=== PATIENT | male | born 1980 | race Caucasian/White ===

== ENCOUNTER → 2021-01-30 09:21 | Outpatient (CLI) | payer OTHER, SELFPAY ==
[2021-01-30 20:13] LABS: SARS-CoV-2 RNA PCR Negative
== END ==
PROVIDERS: PCP Internal Medicine; Visit Provider Internal Medicine
DX: R05 Cough (principal); Z20.822 Contact with and (suspected) exposure to COVID-19
CPT/HCPCS: C9803; U0003; U0005

== ENCOUNTER → 2021-07-20 09:31 | Outpatient (CLI) | payer OTHER, SELFPAY ==
--- NOTE | ~2021-07-20 | XR_ITS ---
EXAMINATION: XR hand RT min 3V INDICATION: Right hand pain TECHNIQUE: Three views of the right hand are obtained. COMPARISON: None available FINDINGS: There is no fracture, dislocation, or subluxation. The bones, soft tissues, and joint space s are normal. No productive changes of bony healing are identified. IMPRESSION: 1. No acute osseous abnormality. Reviewed, dictated and finalized at location A.
== END ==
PROVIDERS: PCP Internal Medicine; Visit Provider Internal Medicine
DX: S69.91XA Unspecified injury of right wrist, hand and finger(s), initial encounter (principal); X58.XXXA Exposure to other specified factors, initial encounter
CPT/HCPCS: 73130

== ENCOUNTER 2023-11-11 18:24 | Emergency (ER) | payer OTHER, SELFPAY ==
--- NOTE | ~2023-11-11 | XR_ITS ---
EXAMINATION: XR chest 2V DATE: 11/11/2023 18:44 INDICATION: Chest pain TECHNIQUE: frontal and lateral views of the chest were obtained. COMPARISON: None FINDINGS: The lungs are clear with no focal airspace opacities, pulmonary edema, pleural effusion or pneumothor ax. Partially symmetric nipple shadows projecting near the bilateral anterior fifth ribs. The cardiom ediastinal silhouette is normal. Mild thoracic spondylosis. Heterotopic ossification in the region of the left coracoclavicular ligament suggestive of sequela of chronic tear. IMPRESSION: 1. No acute cardiopulmonary disease. Reviewed, dictated and finalized at location A. GAGE OPERATIONS MANAGER
--- NOTE | 2023-11-11 18:28 | ECG_ITS ---
Measurements Intervals [place] Rate: 92 P: 73 NH: 139 QRS: 88 QRSD: 77 T: 65 QT: 293 QTc: 363 Interpretive Statements SINUS RHYTHM POSSIBLE RIGHT ATRIAL ENLARGEMENT POSSIBLE LEFT ATRIAL ENLARGEMENT BORDERLINE ST-T WAVE ABNORMALITY- ANTEROLAT/INF LEADS BASELINE ARTIFACT- I, II, III, AVR, AVL, V6 BORDERLINE ECG NO PREVIOUS ECG AVAILABLE FOR COMPARISON Electronically Signed On 11-11-2023 19:23:38 CLINICAL NURSING DIRECTOR by Nima Grijalva D.O.
[2023-11-11 18:29] VITALS: BP 190/84; PULSE 97; RESP 19; TEMP 36.4; O2SAT 100
--- NOTE | 2023-11-11 18:36 | ED.GENADULT ---
HPI - General Adult General Chief complaint: Chest Pain <Cynthia Rice March, - Last Filed: 11/13/23 21:17> Stated complaint: chest pain x4-5 days <Cynthia Rice March, - Last Filed: 11/13/23 21:17> Time Seen by Provider: 11/11/23 22:35 <Cynthia Rice March, - Last Filed: 11/13/23 21:17> History of Present Illness HPI narrative: Molina Tony is a 43 y/o male with PMhx of Type 1 DM reports he had a sore throat 3-4 days ago that improved with a mild cough that seems to be getting better. He presents today with complaints of intermittent left upper chest burning/ warm/ constricting pain for the past 4-5 days. He hasn't noticed anything that makes his pain better/worse or what brings it on. Denies SOB/ Fever/chills No hx of HTN - elevated here. No hx of MS/cardiac surgery <Cynthia Rice March, - Last Filed: 11/13/23 21:17> Related Data Home medications: Home Medications Medication Instructions Recorded Confirmed blood-glucose meter,continuous #1 ea 04/05/20 07/30/23 ([employer] Consultant) cholecalciferol (vitamin D3) 125 125 mcg PO DAILY 07/30/23 07/30/23 mcg (5,000 unit) tablet rosuvastatin 5 mg tablet 5 mg PO DAILY 07/30/23 07/30/23 <Cynthia Rice March, - Last Filed: 11/13/23 21:17> Allergies/adverse reactions: Allergies Allergy/AdvReac Type Severity Reaction Status Date / Time Penicillins Allergy Unknown Rash Verified 07/30/23 08:21 shellfish derived Allergy Unknown Dizziness Verified 07/30/23 08:21 <Cynthia Rice March, - Last Filed: 11/13/23 21:17> Review of Systems Review of Systems: All systems reviewed & are unremarkable except as noted in HPI and below <Cynthia Rice March,N Last Filed: 11/13/23 21:17> PMFSH Past Medical History Medical History: Medical History 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 Type 1 diabetes mellitus with hyperglycemia, with long-term current use of insulin <Cynthia Rice March, Last Filed: 11/13/23 21:17> Surgical History Surgical History: Surgical History No pertinent past surgical history <Cynthia Rice March, Last Filed: 11/13/23 21:17> Family History Family History: Family History Father Family history of diabetes mellitus in first degree relative <Cynthia Rice March, Last Filed: 11/13/23 21:17> Social History Social History: Social History Smoking status: Never smoker Second hand tobacco smoke exposure: No Alcohol intake: current Alcohol use details: occasionally Substance use: never Lack of Transportation: No Lack of Food: Never True Current Housing: I Have Housing Concerned About Future Housing: No Difficulty Paying Gas/Electric Bills: No Difficulty Paying for Meds: No Currently Unemployed: No Difficulty w/ Childcare or Family Care: No <Cynthia Rice March, Last Filed: 11/13/23 21:17> Exam Const: General: healthy appearing and no acute distress <Cynthia Rice March, Last Filed: 11/13/23 21:17> Nutritional Appearance: well nourished <Cynthia Rice March, Last Filed: 11/13/23 21:17> Orientation/consciousness: patient oriented x3 <Cynthia Rice March, Last Filed: 11/13/23 21:17> HENMT: Head: normal to inspection <Cynthia Rice March, Last Filed: 11/13/23 21:17> Eyes: Conjunctivae: conjunctivae normal <Cynthia Rice March, Last Filed: 11/13/23 21:17> Pupils: Equal, round and reactive pupils present <Cynthia Rice March, Last Filed: 11/13/23 21:17> EOM: EOMs intact bilaterally <Cynthia Trejo FIRESTOP/CONTAINMENT WORKER - Last Filed: 11/13/23 21:17> Chest: Chest palpation & inspection: normal inspection of the chest <Cynthia Trejo - Last Filed: 11/13/23 21:17> Resp: Effort & Inspection: normal respiratory effort <K
[2023-11-11 18:41] LABS: Basophils Absolute Auto 0.1 K/mm3 (0.0-0.1); Basophils Percent Auto 0.6 % (0.2-1.2); Eosinophils Absolute Auto 0.1 K/mm3 (0-0.3); Eosinophils Percent Auto 1.3 % (0-4.4); Hematocrit 47.6 % (42.0-52.0); Immature Granulocyte Absolute 0.03 K/mm3 (0.00-0.031); Immature Granulocyte Percent A 0.3 % (0-0.5); Lymphocytes Percent Auto 23.5 % (18.3-44.2); Mean Corpuscular HGB Conc 31.5 g/dl (32-36); Mean Corpuscular Hemoglobin 27.6 pg (26-34); Mean Corpuscular Volume 87.5 fl (80-100); Mean Platelet Volume 10.4 fl (7.4-10.4); Monocytes Absolute Auto 0.9 K/mm3 (0.1-0.6); Monocytes Percent Auto 8.8 % (2.6-8.5); Neutrophils Absolute Auto 6.4 K/mm3 (1.3-6.7); Neutrophils Percent Auto 65.5 % (45.5-73.1); Platelet Count Result 229 k/mm3 (150-375); Red Blood Count 5.44 M/mm3 (4.6-6.20); Red Cell Distribution Width 12.4 % (11.5-14.5); White Blood Count 9.8 K/mm3 (4.5-10.0)
[2023-11-11 18:51] LABS: Alanine Aminotransferase 41 U/L (6-50); Albumin Level 4.4 g/dL (3.5-5.1); Alkaline Phosphatase 88 U/L (38-126); Anion Gap 9 mmol/L (8-16); Aspartate Amino Transferase 34 U/L (17-59); Bilirubin,Total 0.7 mg/dL (0.2-1.3); Blood Urea Nitrogen 15 mg/dL (9-20); Calcium 9.7 mg/dL (8.4-10.2); Carbon Dioxide 31 mmol/L (22-30); Chloride 100 mmol/L (98-107); Estimated CRCL calculation 91 ml/min; Estimated Glomerular Filt Rate > 60; Glucose 143 mg/dL (65-110); Lipase 40 U/L (23-300); Potassium 3.4 mmol/L (3.4-5.0); Prothrombin Time 13.6 Seconds (11.1-14.7); Sodium 140 mmol/L (137-145)
[2023-11-11 18:52] LABS: Partial Thromboplastin Time 27.7 SECONDS (22.3-36.8)
[2023-11-11 19:02] LABS: Troponin I < 0.012 ng/mL (0.000-0.034)
--- NOTE | 2023-11-11 22:41 | ECG_ITS ---
Measurements Intervals [place] Rate: 82 P: 58 MS: 136 QRS: 81 QRSD: 80 T: 45 QT: 375 QTc: 439 Interpretive Statements SINUS RHYTHM POSSIBLE LEFT ATRIAL ENLARGEMENT BORDERLINE ST-T WAVE ABNORMALITY- ant/inf leads BORDERLINE ECG COMPARED TO ECG 11/11/2023 18:33:24 NO SIGNIFICANT CHANGES Electronically Signed On 11-12-2023 11:39:51 WORKPLACE REHABILITATION OFFICER by Nima Grijalva D.O.
[2023-11-11 22:43] VITALS: BP 162/85; PULSE 91; RESP 16; O2SAT 100
[2023-11-11 23:05] LABS: Troponin I < 0.012 ng/mL (0.000-0.034)
[2023-11-11 23:10] LABS: Influenza A QL RT-PCR Negative (Negative); Influenza B QL RT-PCR Negative (Negative); RSV RNA, RT-PCR Negative (Negative); SARS-CoV-2 RNA PCR Negative (Negative)
[2023-11-11 23:59] VITALS: BP 134/69; PULSE 68; RESP 15; O2SAT 99
== END 2023-11-12 00:12 | disposition home or self-care (01) ==
PROVIDERS: Emergency Medicine; Nurse Practitioner Family; Emergency Provider Emergency Medicine; PCP Family Medicine
DX: R07.89 Other chest pain (principal); Z20.822 Contact with and (suspected) exposure to COVID-19; E10.69 Type 1 diabetes mellitus with other specified complication; E78.5 Hyperlipidemia, unspecified; Z79.4 Long term (current) use of insulin; R94.31 Abnormal electrocardiogram [ECG] [EKG]
CPT/HCPCS: 36415; 71046; 80053; 83690; 84484; 85025; 85610; 85730; 87637; 93005; 99284

== ENCOUNTER 2024-06-29 08:29 | Outpatient (CLI) | payer OTHER, SELFPAY ==
--- NOTE | 2024-06-29 08:31 | ECHO_ITS ---
Patient Info Name: Molina Tony Age: 43 years : 1980 Gender: Male Ht: 68 in Wt: 175 lbs BSA: 1.97 m2 HR: 65 bpm BP: 160 / 92 mmHg Heart Rhythm: Sinus Rhythm Technical Quality: Good Exam Date: 06/29/2024 9:01 AM Exam Location: Echo Lab Patient Status: Outpatient Admit Date: 06/29/2024 Staff Ordering Physician: Travis Wiley DO Top Spotter: Quinn Philip RDCS Attending Provider: Travis Wiley DO Referring Physician: Inez HARRELL; Exam Type: CA echo doppler color flow Study Info Indications - cardiomegaly Complete two-dimensional, color flow and Doppler transthoracic echocardiogram is performed. Summary 1. Complete two-dimensional, color flow and Doppler transthoracic echocardiogram is performed. 2. Left ventricular chamber dimension is normal. 3. Left ventricular systolic function is normal, estimated at 60-65%. 4. The left ventricular diastolic function is normal. 5. E/e' 5 is not elevated. 6. There is trace mitral valve regurgitation. 7. No pulmonary hypertension, estimated pulmonary arterial systolic pressure is 13 mmHg. Left Ventricle E/e' 5 is not elevated. Left ventricular chamber dimension is normal. Left ventricular systolic function is normal, estimated at 60-65%. The left ventricular diastolic function is normal. Right Ventricle Right ventricular systolic function is normal and with normal TAPSE 2.6 cm. Right ventricular chamber dimension is normal. Left Atria Left atrial chamber dimension is normal. Right Atria Right atrial chamber dimension is normal. Aortic Valve The aortic valve is trileaflet. There is no aortic valve stenosis. There is no aortic valve regurgitation. Pulmonic Valve There is no pulmonic regurgitation. Mitral Valve There is no mitral valve stenosis. There is trace mitral valve regurgitation. Tricuspid Valve There is no tricuspid valve regurgitation. No pulmonary hypertension, estimated pulmonary arterial systolic pressure is 13 mmHg. Pericardium/Pleural There is no pericardial effusion. Inferior Vena Cava Normal inferior vena cava with >50% collapse upon inspiration consistent with normal right atrial pressure, 5 mmHg. Aorta The aortic root size at the sinus of Valsalva is normal. Left Ventricular Outflow Tract Name Value Normal LVOT 2D LVOT Diameter 1.8 cm LVOT Doppler LVOT Peak Gradient 6 mmHg LVOT Mean Gradient 3 mmHg LVOT VTI 24 cm LVOT VTI/AV VTI Ratio 0.9 LVOT Stroke Volume 61 ml LVOT CO 3.2 l/min LVOT CI 1.6 l/min/m2 Pulmonic Valve Name Value Normal PV Doppler PV Peak Gradient 5 mmHg Mitral Valve Name Value Normal ----
== END 2024-06-29 08:30 | disposition home or self-care (01) ==
PROVIDERS: PCP Family Medicine; Visit Provider Family Medicine
DX: I51.7 Cardiomegaly (principal)
CPT/HCPCS: 93306

== ENCOUNTER 2025-04-23 08:04 | Outpatient (CLI) | payer BC, SELFPAY ==
--- NOTE | ~2025-04-23 | MR_ITS ---
MRI of the brain Clinical History: Dizziness and giddiness Technique: Axial and sagittal T1-weighted images were acquired. These were followed by axial T2-weigh sanjeev, diffusion weighted, gradient, and FLAIR images. Thin cut axial and coronal T1-weighted and T2-we ighted images were performed through the internal auditory canals. Following intravenous administrati on of 16 cc MultiHance gadolinium, T1-weighted fat-sat imaging was performed through the brain in the axial and coronal planes. Thin cut T1-weighted postcontrast imaging was performed through the financial services internship al auditory canals in the axial and coronal planes. Findings: No abnormal signal seen in the brain parenchyma. No acute infarct, intracranial hemorrhage or mass lesion seen. Ventricles and subarachnoid spaces are unremarkable. Orbits are unremarkable. Paranasal sinuses and m astoid air cells are clear. Major intracranial flow voids appear intact. Sagittal midline structures are intact. No abnormal mass lesion seen at the internal auditory canals or CP angle regions. No abnormal postcontrast enhancement identified. IMPRESSION: Unremarkable exam. Reviewed, dictated and finalized at location . IMPRESSION: Unremarkable exam.
--- OUTSIDE RECORDS SUMMARY | 2025-04-23 08:12 | XMS_ITS | Clinical Summary ---
Author Organization [facility] – [place] [address] Address [address] [place] [phone] Care Team Providers Care Tenter Name Role Phone Unknown, Notinfile Primary Care Provider Unavail able Allergies Active Allergy Reactions Criticality Noted Date Comments Penicillin G Medications insulin lispro (HumaLOG) 100 unit/mL pen for injection Inject under the skin 1 Active meclizine (ANTIVERT) 25 mg tabletIndicatio ns:Lightheadedn ess Take 1 tablet (25 mg total) by mouth 3 (three) times a day as needed for dizziness 30 tablet 5 Active Active Problems Problem Noted Date Diagnosed Date Diabetes mellitus 07/16/2013 Overview (02/06/2017): Hypoglycemia associated with diabetes History of insertion of insulin pump 07/16/2013 Overview (02/07/2017): Insulin pump status Type 1 diabetes mellitus 12/18/2012 Overview (02/07/2017): Type 1 diabetes mellitus Encounters Date Type Department Care Team Description 03/17/2025 7:15 PM CDT Office Visit [facility] at [address] [phone] Kitty Garsia NP Lightheadedness (Primary Dx) from Last 3 Months Surgical History Surgery Date Site/Laterality Comments TONSILLECTOMY Tonsillectomy Medical History Medical History Date Comments Hx Other Medical 2003 Urethral strict ure Family History Medical History Relation Name Comments Diabetes Father Diabetes mellit us; Heart attack Father Myocardial infa rction; Other Mother 2 Alive and well; Diabetes Other Diabetes mellit us; Relation Name Status Comments Father Mother 1 Alive Mother 2 Other Social History Tobacco Use Types Packs/Day Years Used Date Smoking Tobacco: Never Assessed Alcohol Use Standard Drinks/Week Comments Yes 0 (1 standard drink = 0.6 oz pur e alcohol) Sex and Gender Information Value Date Recorded Sex Assigned at Not on file 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 Gender Identity Not on file Sexual Orientation Not on file Obstetrics History Last Filed Vital Signs Vital Sign Reading Time Taken Comments Blood Pressure 140/88 03/17/2025 7:38 PM CDT Pulse 74 03/17/2025 7:10 PM CDT Temperature 37 C (98.6 F) 03/17/2025 7:10 PM CDT Respiratory Rate 17 03/17/2025 7:10 PM CDT Oxygen Saturation 99% 03/17/2025 7:10 PM CDT Inhaled Oxygen Concentration - - Weight 80.7 kg (178 lb) 03/17/2025 7:10 PM CDT Height 172.7 cm (5' 8) 03/17/2025 7:10 PM CDT Body Mass Index 27.06 03/17/2025 7:10 PM CDT Plan of Treatment Health Maintenance Due Date Last Done Comments Albumin Creatinine Ratio, Urine 1980 Depression Screening 1980 Foot Exam 1980 Hemoglobin A1C 1980 Hepatitis C Screening 1980 TSH Level 1980 eGFR 1980 Dilated Eye Exam 1991 Varicella Vaccines (1 of 2 - 13+ 2-dose series) 1994 Hepatitis B Screening 1999 Regular Well Visit/Exam 18-64 1999 Lipid Panel 04/19/2015 04/19/2014 Covid-19 Vaccine ( season) 2024 10/05/2023, 09/07/2021, 01/31/2021, Additional history exists Influenza Vaccine (Season Ended) 2025 10/05/2023, 09/08/2022, 09/07/2021, Additional history exists DTaP/Tdap/Td Vaccine (2 - Td or Tdap) 06/16/2029 06/16/2019 Pneumococcal vaccine <65 Completed 10/05/2023 HPV Vaccines Aged Out No longer eligi ble based on patient's age to complete this topic Procedures Procedure Name Priority Date/Time Associated Diagnosis Comments SERUM LIPID PANEL Routine 04/19/2014 8:4 0 AM CDT from Last 3 Months or Most Recently Relevant to Health Maintenance Results * Serum lipid panel (04/19/2014 8:40 AM CDT) Cholesterol 147 100 - 199 mg/dl HISTORICAL RESULTS Triglycerides 62 0 - 149 mg/dl HISTORICAL RESULTS HDL 59 >39 mg/dl HISTORICAL RESULTS Comment: According to ATP-III Guidelines, HDL-C >59 mg/dL is considered a negative risk factor for CHD. VLDL 12 5 - 40 mg/dl HISTORICAL RESULTS LDL 76 0 - 99 mg/dl HISTORICAL RESULTS Serum 04/19/2014 8:40 AM CDT Historical Provider LAB BLOOD ORDERABLES Brina kaur Result HISTORICAL RESULTS from Last 3 Months or Most Recently Relevant to Health Maintenance Insurance [facility] ACCESS CHOICE Care Teams Tenter Relationship Specialty Start Date End Date Unknown, Notinfile PCP - General 03/17/25
--- OUTSIDE RECORDS SUMMARY | 2025-04-23 08:12 | XMS_ITS | Referral Summary ---
Author Organization [address] Address [address] [place] [phone] Care Team Providers Care Top Trimmer Name Role Phone Unknown, Notinfile Primary Care Provider Unavail able Encounters Date Type Department Care Team Description 03/17/2025 7:15 PM CDT Office Visit [facility] at [address] [phone] Kitty Garsia, MATTHEW Lightheadedness (Primary Dx) from Last 3 Months Allergies Active Allergy Reactions Criticality Noted Date [...] 12/18/2012 Overview (02/07/2017): Type 1 diabetes mellitus Social History Tobacco Use Types Packs/Day Years Used Date Smoking Tobacco: Never Assessed Alcohol Use Standard Drinks/Week Comments Yes 0 (1 standard drink = 0.6 oz pur e alcohol) Sex and Gender Information Value Date Recorded Sex Assigned at Not on file 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
--- OUTSIDE RECORDS SUMMARY | 2025-04-23 08:12 | XMS_ITS | Data Portability ---
Author Organization [facility] MARYBETHMagnolia Barbi Pierson Address [address] [facility] [place] [address] Care Team Providers Care Pharmacy Sales Representative Name Role Phone PURVI WALLACE Primary Care Provider [phone] Assessment Encounter Date Assessment Date Assessment LastModified by Organization Details LastModified Time 03/22/2025 03/22/2025 Obtain old records from endocrinology obtain old records from primary care his EKG shows a normal sinus rhythm with no acute changes. MRI brain with and without to include internal auditory canals Valium 5 mg 1/2 p.o. b.i.d. for vestibular suppression he did take some meclizine with equivocal results that he got from an urgent care center. Follow up in 3-4 weeks [email or web address] Not available 03/22/2025 13:55:03 Plan of Treatment Reminders Order Date Submit Date Provider Last Modified By Organization Details Last Modified Time Details Appointments ANY 15 2024 09:15A M Purvi Wallace MD Not available Not available Not available Lab CBC w/ auto diff 2024 025 [facility], [address] [place] [address], [address], [place], [address], 03/27/2025 13:08:01 CMP, serum or plasma 2024 025 [facility], [address] [place] [address], [address], [place], [address], 03/27/2025 13:07:59 lipid panel, serum 2024 025 [facility], [address] [place] [address] [place], [address], [place], [address], 03/27/2025 13:07:58 HbA1c (hemoglob in A1c), blood 2024 025 [facility], [address], [address], [place], [address], 03/27/2025 13:08:00 microalbu min/creat inine, mass ratio, urine 2024 025 [facility], [address], [address], [place], [address], 03/27/2025 13:07:57 Referral None recorded. Procedures None recorded. Surgeries None recorded. Imaging MRI, brain + internal auditory canal, w/wo contrast 2024 [facility] ([facility] [address], [place], [address], 04/20/2025 09:01:56 electroca rdiogram 2024 [email or web address] In-Office Order, Internal Use Only DO Not Attach Compendium DO Not Attach Compendium, Do Not Delete/merge, [id number] 03/22/2025 13:08:35 Medication Orders None recorded. Patient TargetsNo targets recorded. Patient Instructions Encounter Date Encounter Id Patient Instructions Last Modified By Organization Details Last Modified Time 03/22/2025 [id number] A healthy lifestyle: care instructions [email or web address] Not available 03/22/2025 12:09:20 Reason for Referral None Reported. Results Created Date Observation Date Name Description Value Unit Range Abnormal Flag Note LastModifiedBy Organization Detail LastModifiedTime 03/26/20 25 03/27/2025 ALBUM IN/CR EAT RATIO , RANDO M UR creatinine, urine 196.1 mg/dL notest ab. Not Available [facility] ([facility]) [address] [facility], [place], [address], 03/27/2025 13:07:57 03/26/20 25 03/27/2025 ALBUM IN/CR EAT RATIO , RANDO M UR albumin, urine 7.3 ug/mL notest ab. Not Available [facility] ([facility]) [address] [place], [address], 03/27/2025 13:07:57 03/26/20 25 03/27/2025 ALBUM IN/CR EAT RATIO , RANDO M UR alb/creat ratio 4 mg/g_ creat 0-29 Clarisa l: 0 - 29 Moder ately incre ased: 30 - 300 Sever marianna incre ased: >300 Not Available [facility] ([facility]) [address] [place], [address], 03/27/2025 13:07:57 03/26/20 25 03/27/2025 LIPID PANEL cholesterol, total 178 mg/dL 100-19 9 Not Available [facility] ([facility]) [address] [place], [address], 03/27/2025 13:07:58 03/26/20 25 03/27/2025 LIPID PANEL triglyceride s 40 mg/dL 0-149 Not Available [facility] ([facility]) [address] [place], [address], 03/27/2025 13:07:58 03/26/20 25 03/27/2025 LIPID PANEL HDL cholesterol 64 mg/dL >39 Not Available [facility]) [address] [place], [address], 03/27/2025 13:07:58 03/26/20 25 03/27/2025 LIPID PANEL VLDL cholesterol dulce 8 mg/dL 5-40 Not Available [facility] ([facility]) [address] [place], [address], 03/27/2025 13:07:58 03/26/20 25 03/27/2025 LIPID PANEL LDL chol calc ([facility]) 106 mg/dL 0-99 above high normal Not Available [facility] ([facility]) [address] [place], [address], 03/27/2025 13:07:58 03/26/20 25 03/27/2025 COMP. METAB OLIC PANEL (14) glucose 89 mg/dL 70-99 Not Available [facility] ([facility]) [address] [place], [address], 03/27/2025 13:07:59 03/26/20 25 03/27/2025 COMP. METAB OLIC PANEL (14) BUN 14 mg/dL 6-24 Not Available [facility] ([facility]) [address] [place], [address], 03/27/2025 13:07:59 03/26/20 25 03/27/2025 COMP. METAB OLIC PANEL (14) creatinine 1.03 mg/dL 0.76-1 .27 Not Available [facility] ([facility]) [address] [place], [address], 03/27/2025 13:07:59 03/26/20 25 03/27/2025 COMP. METAB OLIC PANEL (14) eGFR 92 mL/mi n/1.7 3 >59 Not Available [facility] ([facility]) [address] [place], [address], 03/27/2025 13:07:59 03/26/20 25 03/27/2025 COMP. METAB OLIC PANEL (14) BUN/creatini ne ratio 14 9-20 Not Available [facility] ([facility]) [address] [place], [address], 03/27/2025 13:07:59 03/26/20 25 03/27/2025 COMP. METAB OLIC PANEL (14) sodium 142 mmol/ L 134-14 4 Not Available [facility] ([facility]) [address] [place], [address], 03/27/2025 13:07:59 03/26/20 25 03/27/2025 COMP. METAB OLIC PANEL (14) potassium 4.6 mmol/ L 3.5-5. 2 Not Available [facility] [address] [place], [address], 03/27/2025 13:07:59 03/26/20 25 03/27/2025 COMP. METAB OLIC PANEL (14) chloride 103 mmol/ L 96-106 Not Available [facility] [address] [place], [address], 03/27/2025 13:07:59 03/26/20 25 03/27/2025 COMP. METAB OLIC PANEL (14) carbon dioxide, total 27 mmol/ L 20-29 Not Available [facility] ([facility]) [address] [facility], [place], [address], 03/27/2025 13:07:59 03/26/20 25 03/27/2025 COMP. METAB OLIC PANEL (14) calcium 9.2 mg/dL 8.7-10 .2 Not Available [facility] ([facility]) [address] [facility], [place], [address], 03/27/2025 13:07:59 03/26/20 25 03/27/2025 COMP. METAB OLIC PANEL (14) protein, total 6.5 g/dL 6.0-8. 5 Not Available [facility] ([facility]) [address] [facility] [place], [address], 03/27/2025 13:07:59 03/26/20 25 03/27/2025 COMP. METAB OLIC PANEL (14) albumin 4.4 g/dL 4.1-5. 1 Not Available [facility] ([facility]) [address] [facility] [place], [address], 03/27/2025 13:07:59 03/26/20 25 03/27/2025 COMP. METAB OLIC PANEL (14) globulin, total 2.1 g/dL 1.5-4. 5 Not Available [facility] ([facility]) [address] [place], [address], 03/27/2025 13:07:59 03/26/20 25 03/27/2025 COMP. METAB OLIC PANEL (14) bilirubin, total 0.6 mg/dL 0.0-1. 2 Not Available [facility] ([facility]) [address] [place], [address], 03/27/2025 13:07:59 03/26/20 25 03/27/2025 COMP. METAB OLIC PANEL (14) alkaline phosphatase 82 IU/L 44-121 Not Available [facility]) [address] [place], [address], 03/27/2025 13:07:59 03/26/20 25 03/27/2025 COMP. METAB OLIC PANEL (14) AST (SGOT) 22 IU/L 0-40 Not Available [facility] ([facility]) [address] [place], [address], 03/27/2025 13:07:59 03/26/20 25 03/27/2025 COMP. METAB OLIC PANEL (14) ALT (SGPT) 18 IU/L 0-44 Not Available [facility] ([facility]) [address] [place], [address], 03/27/2025 13:07:59 03/26/20 25 03/27/2025 HEMOG LOBIN A1C hemoglobin A1C 7.4 % 4.8-5. 6 above high normal Predi abete s: 5.7 - 6.4 Diabe ashley: >6.4 Glyce roma contr ol for adult s with diabe ashley: <7.0 Not Available [facility] ([facility]) [address] [place], [address], 03/27/2025 13:08:00 03/26/20 25 03/27/2025 CBC WITH DIFFE RENTI AL/PL ATELE T WBC 4.8 x10e3 /uL 3.4-10 .8 Not Available [facility] ([facility]) [address], [place], [address], 03/27/2025 13:08:01 03/26/20 25 03/27/2025 CBC WITH DIFFE RENTI AL/PL ATELE T RBC 5.66 x10e6 /uL 4.14-5 .80 Not Available [facility] ([facility]) [address] [place], [address], 03/27/2025 13:08:01 03/26/20 25 03/27/2025 CBC WITH DIFFE RENTI AL/PL ATELE T hemoglobin 15.9 g/dL 13.0-1 7.7 Not Available [facility] ([facility]) [address] [place], [address], 03/27/2025 13:08:01 03/26/20 25 03/27/2025 CBC WITH DIFFE RENTI AL/PL ATELE T hematocrit 49.8 % 37.5-5 1.0 Not Available [facility] ([facility]) [address] [place], [address], 03/27/2025 13:08:01 03/26/20 25 03/27/2025 CBC WITH DIFFE RENTI AL/PL ATELE T MCV 88 fL 79-97 Not Available [facility] ([facility]) [address] [place], [address], 03/27/2025 13:08:01 03/26/20 25 03/27/2025 CBC WITH DIFFE RENTI AL/PL ATELE T MCH 28.1 pg 26.6-3 3.0 Not Available [facility] ([facility]) [address] [place], [address], 03/27/2025 13:08:01 03/26/20 25 03/27/2025 CBC WITH DIFFE RENTI AL/PL ATELE T MCHC 31.9 g/dL 31.5-3 5.7 Not Available [facility] ([facility]) [address] [facility], [place], [address], 03/27/2025 13:08:01 03/26/20 25 03/27/2025 CBC WITH DIFFE RENTI AL/PL ATELE T RDW 11.9 % 11.6-1 5.4 Not Available [facility] ([facility]) [address] [facility], [place], [address], 03/27/2025 13:08:01 03/26/20 25 03/27/2025 CBC WITH DIFFE RENTI AL/PL ATELE T platelets 247 x10e3 /uL 150-45 0 Not Available [facility] ([facility]) [address] [facility], [place], [address], 03/27/2025 13:08:01 03/26/20 25 03/27/2025 CBC WITH DIFFE RENTI AL/PL ATELE T neutrophils 57 % notest ab. Not Available [facility] ([facility]) [address] [facility], [place], [address], 03/27/2025 13:08:01 03/26/20 25 03/27/2025 CBC WITH DIFFE RENTI AL/PL ATELE T lymphs 30 % notest ab. Not Available [facility] ([facility]) [address] [facility], [place], [address], 03/27/2025 13:08:01 03/26/20 25 03/27/2025 CBC WITH DIFFE RENTI AL/PL ATELE T monocytes 9 % notest ab. Not Available [facility] ([facility]) [address] [place], [address], 03/27/2025 13:08:01 03/26/20 25 03/27/2025 CBC WITH DIFFE RENTI AL/PL ATELE T eos 3 % notest ab. Not Available [facility] ([facility]) [address] [place], [address], 03/27/2025 13:08:01 03/26/20 25 03/27/2025 CBC WITH DIFFE RENTI AL/PL ATELE T basos 1 % notest ab. Not Available [facility] ([facility]) [address] [facility], [place], [address], 03/27/2025 13:08:01 03/26/20 25 03/27/2025 CBC WITH DIFFE RENTI AL/PL ATELE T neutrophils (absolute) 2.7 x10e3 /uL 1.4-7. 0 Not Available [facility] ([facility]) [address] [place], [address], 03/27/2025 13:08:01 03/26/20 25 03/27/2025 CBC WITH DIFFE RENTI AL/PL ATELE T lymphs (absolute) 1.5 x10e3 /uL 0.7-3. 1 Not Available [facility] ([facility]) [address] [place], [address], 03/27/2025 13:08:01 03/26/20 25 03/27/2025 CBC WITH DIFFE RENTI AL/PL ATELE T monocytes(ab solute) 0.5 x10e3 /uL 0.1-0. 9 Not Available [facility] ([facility]) [address] [place], [address], 03/27/2025 13:08:01 03/26/20 25 03/27/2025 CBC WITH DIFFE RENTI AL/PL ATELE T eos (absolute) 0.1 x10e3 /uL 0.0-0. 4 Not Available [facility] ([facility]) [address] [place], [address], 03/27/2025 13:08:01 03/26/20 25 03/27/2025 CBC WITH DIFFE RENTI AL/PL ATELE T baso (absolute) 0.0 x10e3 /uL 0.0-0. 2 Not Available [facility] ([facility]) [address] [facility], [place], [address], 03/27/2025 13:08:01 03/26/20 25 03/27/2025 CBC WITH DIFFE RENTI AL/PL ATELE T immature granulocytes 0 % notest ab. Not Available [facility] ([facility]) [address] [facility], [place], [address], 03/27/2025 13:08:01 03/26/20 25 03/27/2025 CBC WITH DIFFE RENTI AL/PL ATELE T immature grans (abs) 0.0 x10e3 /uL 0.0-0. 1 Not Available [facility] ([facility]) [address] [facility], [place], [address], 03/27/2025 13:08:01 03/22/20 elect rocar diogr am No observ ation record ed. [facility] In-Office Order Internal Use Only DO Not Attach Compendium DO Not Attach Compendium, Do Not Delete/merge, [id number] 03/22/2025 12:19:50 03/22/20 25 03/22/2025 [facility] rocar diogr am No observ ation record ed. [facility] In-Office Order Internal Use Only DO Not Attach Compendium DO Not Attach Compendium, Do Not Delete/merge, [id number] 03/22/2025 12:47:29 Result Notes None recorded. Problems Name Problem SNOMED Code Status Onset Date Resolution Date Notes Provider Name and Address Organization Details Recorded Time Screening for cardiovascular system disease Active 2024 BECKY Bundy [place] - [facility] 11:49:03 Type 1 diabetes mellitus 50881307 Active 2024 BECKY Bund[place] - [place] 05/19/202 5 11:49:03 Dizziness 239261244 Active 2024 BECKY [place], [place] - [place] 5 11:49:05 Overweight 991223774 Active 2024 BECKY [place] - [place] 5 11:49:07 Overweight in adulthood with body mass index of 25 or more but less than 30 030159900 Active 2024 BECKY [place], [place] - [place] 5 11:49:09 Problem Notes None recorded. Medical Equipment None Reported. Allergies Allergen ID Allergen Name Allergen Category Reaction Reaction Severity Criticality Documentation Date Start Date Code Code System Note Provider Name and Address Organization Details Recorded Time 419826 Product containin g penicilli n (product) medicatio n Not available Not available low 03/22/2025 59242 8001 SNOMED Doesn 't know the react ion to this medic ation BECKY Garcia, [facility] 5 10:32:31 Medications Name Sig Start Date Stop Date Status Note LastModified by Organization Details LastModified Time Valium 5 mg tablet Take 0.5 tablets twice a day by oral route. 2024 active Not Available Not Available Not Avai lable rosuvastatin 5 mg tablet Take 1 tablet every day by oral route. active Not Available Not Available No t Available Vitals Date Recorded Body height Body mass index (BMI) Body weight Heart rate Oxygen saturation Oxygen saturation in Arterial blood by Pulse oximetry Systolic blood pressure Diastolic blood pressure Provider Name and Address Organization Details Last Updated DateTime 5 172.72 cm 26.4 kg/m2 22626.2 8 g 73 /min 97 % 97 % 132 mm[Hg] 68 mm[Hg] BECKY Garcia [facility] 5 10:41:21 Date Recorded Body height Body mass index (BMI) Body weight Heart rate Oxygen saturation Oxygen saturation in Arterial blood by Pulse oximetry Systolic blood pressure Diastolic blood pressure Provider Name and Address Organization Details Last Updated DateTime 5 172.72 cm 26.8 kg/m2 41247.0 5 g 66 /min 98 % 98 % 110 mm[Hg] 68 mm[Hg] BECKY Garcia [facility] 11:57:32 Social History Question Answer Notes LastModified by Organizat ion Details LastModified Time Tobacco Smoking Status Never Smoker Orin ChoBECKY, [facility] 03/22/2025 11:01:16 Do You Have An Advance Directive? Yes Information n ot available 03/22/2025 Are You Blind Or Do You Have Difficulty Seeing? No Information n ot available 03/22/2025 What Is Your Level Of Caffeine Consumption? Occasional Information not available 03/22/2025 In The 14 Days Before Symptom Onset, Have You Had Close Contact With A Laboratory-confirm ed COVID-19 While That Case Was Ill? No Information n ot available 03/22/2025 In The 14 Days Before Symptom Onset, Have You Had Close Contact With A Person Who Is Under Investigation For COVID-19 While That Person Was Ill? No Information not available 03/22/2025 Have You Been To An Area Known To Be High Risk For COVID-19? No Information not available 03/22/2025 Are You Deaf Or Do You Have Serious Difficulty Hearing? No Information not available 03/22/2025 What Type Of Diet Are You Following? REGULAR Information n ot available 03/22/2025 Are There Any Guns Present In Your Home? No Information not available 03/22/2025 What Was The Date Of Your Most Recent Tobacco Screening? 04/12/2025 Information not available 04/12/2025 What Is Your Relationship Status? Information not available 03/22/2025 Do You Use Your Seat Belt Or Car Seat Routinely? Yes Information not available 03/22/2025 Do You Have Smoke And Carbon Monoxide Detectors In Your Home? Yes Information not available 03/22/2025 Do You Use Sunscreen Routinely? Yes Information not available 03/22/2025 Has Tobacco Cessation Counseling Been Provided? No Information not available 03/22/2025 Sex: Male Functional Status Question Answer Note LastModified by Organizat ion Details LastModified Time Do you use any illicit or recreational drugs? No Information not available 03/22/2025 Do you or have you ever used any other forms of tobacco or nicotine? No Information not available 03/22/2025 What is your level of alcohol consumption? Occasional Information not available 03/22/2025 Are you currently employed? Yes Information not available 03/22/2025 Are you able to care for yourself? Yes Information n ot available 03/22/2025 What is your exercise level? None Information not available 03/22/2025 Mental Status Question Answer Note LastModified by Organization D etails LastModified Time Do you feel stressed (tense, restless, nervous, or anxious, or unable to sleep at night)? [id number] Information not available 03/22/2025 Family History Nothing Reported. Medical History Condition Response Diabetes Y High Cholesterol Y Immunizations Vaccine Type Date Status Note Provider Nam e and Address Organization Details Recorded Time Tdap 9 completed Not Available [facility] 04/12/2025 11:52:19 Influenza, split virus, quadrivalent, PF 0 completed Not Available [facility] 04/12/2025 11:52:19 COVID-19, mRNA, LNP-S, PF, 30 mcg/0.3 mL dose 1 completed Not Available [facility] 04/12/2025 11:52:19 COVID-19, mRNA, LNP-S, PF, 30 mcg/0.3 mL dose 1 completed Not Available [facility] 04/12/2025 11:52:19 Influenza, split virus, trivalent, preservative 1 completed Not Available [facility] 04/12/2025 11:52:19 COVID-19, mRNA, LNP-S, PF, 30 mcg/0.3 mL dose 1 completed Not Available [facility] 04/12/2025 11:52:19 Influenza, MDCK, quadrivalent, PF 2 completed Not Available [facility] 04/12/2025 11:52:19 Pneumococcal conjugate PCV20, polysaccharide PIL554 conjugate, adjuvant, PF 3 completed Not Available [facility] 04/12/2025 11:52:19 COVID-19, mRNA, LNP-S, PF, damien-sucrose, 30 mcg/0.3 mL 3 completed Not Available [facility] 04/12/2025 11:52:19 Influenza, split virus, quadrivalent, PF 3 completed Not Available [facility] 04/12/2025 11:52:19 Past Encounters Encounter ID Performer Location Encounter Start Date Encounter Closed Date Diagnosis/Indication Diagnosis SNOMED-CT Code Diagnosis ICD10 Code Diagnosis Note [id number] Purvi Wallace MD [facility] [address] [place] [address] 03/22/2025 10:26:22 03/22/2025 11:51:50 Overweight in adulthood with body mass index of 25 or more but less than 30 120193810 E66.3 Z68.26 Overweight 916922632 E66 .3 Dizziness 226923218 R42 Type 1 erendira betes mellitus 39405966 E10.69 Screening for cardiovascular system disease 741923345 Z13.6 [id number] Purvi Wallace MD [facility] [address] [place] [address] 04/12/2025 11:49:05 04/12/2025 12:27:22 Overweight in adulthood with body mass index of 25 or more but less than 30 141542038 E66.3 Z68.26 Health Concerns Section Related Observation LastModified by Organization Detai ls LastModified Time None Recorded Concern Status LastModified by Organization Details LastModified Time None Recorded Advance Directives Directive Y: Payers Insurance Date Sequence Insurance Name Policy Number Policy Obando Covered Member ID Obando Member ID Guarantor Name 04/09/2025 1 [place] [id number] 2 Molina Tony [id number] Molina Tony Notes Date Note Type Note Provider Name and Address Organization Details Recorded Time 03/22/2025 text/html 44-year-old type 1 diabetic also taking medicines for dyslipidemia comes in as a new patient apparently over the past couple of weeks he is kind of felt out of sorts kind of dizzy lightheaded without any blurred vision double vision no slurred speech worse when he kind of turns his head nothing when he rolls over in bed maybe some decreased hearing but he can not be for sure but no clear-cut sinus complaints he has had no chest pain or palpitations no sweaty spells no hypoglycemic spells in his been kind of off and on for like the past couple of weeks he did have chest pain back in 2023 went to the emergency room workup was negative again he has had no chest pain currently medications insulin pump and rosuvastatin 5 mg daily allergies penicillin reaction unknown he was just told that he had problems as a child with it but it does not sound like anything was life-threatening surgeries tonsillectomy urethral stricture and varicocele. Family history of diabetes socially does not smoke vape spurious alcohol use and he works for an [employer]. Purvi Wallace MD Attn: Accounting[address] [facility], [place], [address], [facility] - [facility] 03/22/2025 13:55:25
== END 2025-04-23 08:05 | disposition home or self-care (01) ==
PROVIDERS: PCP Internal Medicine; Visit Provider Internal Medicine
DX: R42 Dizziness and giddiness (principal)
CPT/HCPCS: 70553; A9577